=== PATIENT | female | born 1980 | race African-American/Black ===

== ENCOUNTER 2023-04-21 09:30 | Outpatient (RCR) | payer OTHER, SELFPAY ==
[2023-02-17 09:34] VITALS: BMI 50.7
== END 2023-05-18 23:59 | disposition home or self-care (01) ==
LOC: ANHDMC 09:30
PROVIDERS: PCP Nurse Practitioner Family; Referring Provider Nurse Practitioner Family; Visit Provider Nurse Practitioner Family
DX: E66.01 Morbid (severe) obesity due to excess calories (principal); Z68.44 Body mass index [BMI] 60.0-69.9, adult; Z71.3 Dietary counseling and surveillance
CPT/HCPCS: 97802